=== PATIENT | male | born 1945 | race Caucasian/White ===

== ENCOUNTER 2023-07-13 11:33 | Outpatient (CLI) | payer OTHER | END 2023-07-13 23:59 | disposition home or self-care (01) | LOC: RAD 11:33 | PROVIDERS: ATTEND Chiropractor | DX: M47.814 Spondylosis without myelopathy or radiculopathy, thoracic region (principal); M43.16 Spondylolisthesis, lumbar region; M48.54XA Collapsed vertebra, not elsewhere classified, thoracic region, initial encounter for fracture; M48.00 Spinal stenosis, site unspecified | CPT/HCPCS: 72070; 72100 ==